=== PATIENT | female | born 1975 | race Two or more races ===

== ENCOUNTER 2016-08-12 19:13 | Emergency (ER) | payer BC ==
--- NOTE | 2016-08-13 05:33 | ER ---
ADMIT: 08/12/2016 RM/LOC: ER [facility] MR#: [id number] [address] [address] DIANN PIRES [address] [place] [address] Emergency Room Report SEX: F AGE: 41 : 1975 DATE: 08/12/2016 HISTORY OF PRESENT ILLNESS: The patient is a 41-year-old female with a past medical history of anxiety disorder, aortic valve disease, who came to the ER with chief complaint of heart racing and palpitation. The patient states her anxiety level recently increased, and during the last few weeks, she had multiple episodes of intermittent palpitations, which were resolved all spontaneously. The patient denies any drug use or taking any new medications. The patient states she is waiting for appointment for possible aortic valve surgery. The patient states today before an hour, she had anxiety level increased and also palpitation increased. Patient denies any shortness of breath, abdominal pain, numbness, tingling, or leg swelling or other complaints. PHYSICAL EXAMINATION: VITAL SIGNS: The patient had heart rate of 125. The 12-lead EKG was suggestive of sinus tachycardia. HEAD AND NECK: Noncontributory. I did not hear any radiation of the murmur to the neck. CHEST: Clear. HEART: Normal heart sounds without any murmurs or extra sounds. ABDOMEN: Soft. The rest of the physical exam was noncontributory. The patient received Ativan 1 mg p.o. Heart rate and anxiety decreased, heart rate came to the range of 90s. The patient was re-examined and she states the palpitation is resolved. The patient was observed and did not develop any new symptoms. PLAN: The patient was stable for discharge. She will be followed up by the primary care doctor as needed. Ronal Ly MD/ judy JOB #: [id number] CC: Ronal Ly MD, Attending Physician Prakash Henry, Family Physician
== END 2016-08-12 21:25 | disposition home or self-care (01) ==
LOC: ER 19:13
DX: F41.9 Anxiety disorder, unspecified (principal); R00.2 Palpitations; Z88.1 Allergy status to other antibiotic agents; Z79.899 Other long term (current) drug therapy